=== PATIENT | female | born 1950 | race Caucasian/White ===

== ENCOUNTER → 2017-09-03 17:56 | Outpatient (CLI) | payer MEDICARE, SELFPAY ==
--- NOTE | 2017-09-03 18:05 | DI.MRI.S_ITS ---
PROCEDURE: MR SHOULDER LT WO CON INDICATIONS: BURSITIS OF LEFT SHOULDER TECHNIQUE: Noncontrast oblique coronal T2 fast spin echo with fat saturation, oblique sagittal T1 spin echo and T2 fast spin echo with fat saturation, axial T1 spin echo and T2 fast spin echo with fat saturation through the shoulder. COMPARISON: [facility] [place], CR, XR SHOULDER 2+ VIEWS LEFT, 08/26/2017, 13:24. FINDINGS: Image quality: Excellent. Rotator cuff: Full-thickness tearing at the entire supraspinatus, with medial retraction and atrophy of the supraspinatus. Full-thickness tearing of the anterior and mid infraspinatus tendon, with medial retraction and atrophy of the mid/anterior infraspinatus. Posterior paraspinous intact. Teres minor intact. Subscapularis intact. Bones and bursae: Humeral head is subluxed superiorly. No bone marrow contusions or fractures. Intraosseous ganglia within the inferior glenoid are present. Moderate diffuse articular cartilage loss overlies the glenoid. Moderate acromioclavicular joint degeneration. The acromion demonstrates conventional anatomy, without an os acromiale. No pathologic subacromial-subdeltoid or subcoracoid bursal fluid is present. Capsule and soft tissues: Diffuse degenerative fraying of the glenoid labrum is present. The long head of the biceps tendon demonstrates normal location and morphology. The rotator interval appears normal, without fibrosis. The coracohumeral ligament is normal in thickness. IMPRESSION: 1. Full-thickness tearing of the supraspinatus, as well as the anterior and mid infraspinatus, associated with supraspinatus and infraspinatus atrophy. 2. Acromioclavicular joint osteoarthritis. 3. Degenerative fraying of the glenoid labrum with associated articular cartilage loss. Dictated by: Nicho Kowalski M.D. on 09/04/2017 at 9:22 Approved by: Nicho Kowalski M.D. on 09/04/2017 at 9:31
== END ==
PROVIDERS: Family Provider Nurse Practitioner Gerontology; PCP Nurse Practitioner Gerontology; Visit Provider Orthopaedic Surgery
DX: M75.52 Bursitis of left shoulder (principal); S46.812A Strain of other muscles, fascia and tendons at shoulder and upper arm level, left arm, initial encounter; M19.012 Primary osteoarthritis, left shoulder
CPT/HCPCS: 73221

== ENCOUNTER → 2018-11-25 08:19 | Outpatient (CLI) | payer MEDICARE, SELFPAY ==
--- NOTE | 2018-11-25 | DI.RAD.S_ITS ---
PROCEDURE: XR CERVICAL SPINE 2V OR 3V INDICATIONS: HEADACHE/NECK PAIN TECHNIQUE: 3 view(s) of the cervical spine were acquired. COMPARISON: None. FINDINGS: Bones: No fractures or dislocations to the T1 level. The lateral masses of C1 appear intact on the odontoid view. No suspicious bony lesions. Note is made of moderately severe to severe degenerative disc disease and facet osteoarthritis from C3 to 4 inferiorly. Slight anterolisthesis of C3 on C4 is associated with the facet degenerative change and ligamentous laxity. Soft tissues: No prevertebral soft tissue swelling. IMPRESSION: No trauma found. Moderately severe to severe degenerative disc disease and facet osteoarthritis from the C3 to 4 disc space but only slight subluxation is associated at that level. Spinal and foraminal stenosis likely is present more inferiorly. Dictated by: Agustin Reynaga M.D. on 11/25/2018 at 8:52 Approved by: Agustin Reynaga M.D. on 11/25/2018 at 8:53
== END ==
PROVIDERS: PCP Internal Medicine; Visit Provider Internal Medicine
DX: R51 Headache (principal); M50.31 Other cervical disc degeneration, high cervical region; M47.812 Spondylosis without myelopathy or radiculopathy, cervical region
CPT/HCPCS: 72040

== ENCOUNTER → 2019-01-07 14:32 | Outpatient (CLI) | payer MEDICARE, SELFPAY | PROVIDERS: PCP Internal Medicine; Visit Provider Internal Medicine | DX: Z71.3 Dietary counseling and surveillance (principal) ==

== ENCOUNTER → 2019-08-30 15:18 | Outpatient (CLI) | payer MEDICARE, SELFPAY ==
--- NOTE | 2019-08-30 | DI.CT.S_ITS ---
PROCEDURE: CT HEAD/BRAIN WO CON INDICATIONS: Unspecified injury of head, initial encounter TECHNIQUE: Noncontrast 4.5 mm thick angled axial sections acquired from the foramen magnum to the vertex, with coronal and sagittal reformats. For radiation dose reduction, the following was used: automated exposure control, adjustment of mA and/or kV according to patient size. COMPARISON: None. FINDINGS: Image quality: Excellent. CSF spaces: Basal cisterns are patent. No extra-axial fluid collections. The ventricles are symmetric in size and shape. Brain: No intracranial bleeds or masses. There is cerebral volume loss for age, with resultant ventricular and sulcal prominence. There are periventricular and deep white matter chronic small vessel ischemic changes. There is intracranial internal carotid artery atherosclerosis. Skull and face: Calvarium and visualized facial bones appear intact, without suspicious lesions. Sinuses: Visualized sinuses and mastoids are clear. IMPRESSION: No acute intracranial process. Dictated by: Gus Mack M.D. on 08/30/2019 at 16:15 Approved by: Gus Mack M.D. on 08/30/2019 at 16:17
== END ==
PROVIDERS: PCP Internal Medicine; Referring Provider Internal Medicine; Visit Provider Internal Medicine
DX: S09.90XA Unspecified injury of head, initial encounter (principal); X58.XXXA Exposure to other specified factors, initial encounter
CPT/HCPCS: 70450

== ENCOUNTER → 2021-01-07 11:55 | Outpatient (CLI) | payer MEDICARE, SELFPAY ==
--- NOTE | 2021-01-07 | DI.CT.S_ITS ---
PROCEDURE: CT ABDOMEN PELVIS W CON INDICATIONS: LOWER ABD PAIN TECHNIQUE: After the administration of oral and intravenous contrast, axial sections were acquired from the lung bases to the pubic symphysis. Coronal and sagittal reformats were performed. For radiation dose reduction, the following was used: automated exposure control, adjustment of mA and/or kV according to patient size. COMPARISON:None. FINDINGS: ABDOMEN: Lung bases: No acute findings. Heart: No pericardial effusion. Normal in size. Liver: Hepatic steatosis. Subcentimeter hepatic foci are statistically cysts or hemangiomas, although technically too small to characterize accurately and therefore nonspecific. Gallbladder: Negative. Bile ducts: Normal. Pancreas: Normal. Spleen: Normal. Adrenals: Normal. Kidneys and Ureters: No hydronephrosis. Subcentimeter renal foci, statistically cysts, although technically too small to characterize accurately and therefore nonspecific. Stomach and duodenum: Small hiatal hernia. This could be confirmed with upper GI series. Bowel: Colonic diverticulosis incidentally noted. Appendix is not clearly identified however no suspicious pericecal inflammatory changes are seen. No evidence of bowel obstruction. Other: No free fluid or air. Abdominal nodes: Normal. Aorta and IVC: Normal in size. Ventral wall: Normal. PELVIS: Bladder: Normal. Inguinal region: No hernia. Pelvic nodes: Normal. Bones: No suspicious bony lesions. No vertebral body compression fractures. Diffuse spondylosis and facet arthropathy. Mild levocurvature. IMPRESSION: No acute abnormality identified. Colonic diverticulosis without definite focal diverticulitis. Small hiatal hernia as above Additional chronic and incidental findings as above. Dictated by: Gus Mack M.D. on 01/07/2021 at 14:46 Approved by: Gus Mack M.D. on 01/07/2021 at 14:51
[2021-01-07 12:30] LABS: BUN Creatinine Ratio 24.7 (6-22); Blood Urea Nitrogen 19 mg/dL (7-17); Estimated Glomerular Filt Rate > 60.0 mL/min (>60)
== END ==
PROVIDERS: PCP Internal Medicine; Referring Provider Student in an Organized Health Care Education/Training Program; Visit Provider Student in an Organized Health Care Education/Training Program
DX: R10.30 Lower abdominal pain, unspecified (principal); R19.4 Change in bowel habit; R14.0 Abdominal distension (gaseous); K44.9 Diaphragmatic hernia without obstruction or gangrene; K57.90 Diverticulosis of intestine, part unspecified, without perforation or abscess without bleeding
CPT/HCPCS: 36415; 74177; 82565; 84520

== ENCOUNTER → 2021-09-17 13:14 | Outpatient (CLI) | payer MEDICARE, SELFPAY ==
[2021-09-17 14:06] LABS: COVID19 -Nasal RAPID Negative (Negative)
== END ==
PROVIDERS: PCP Internal Medicine; Visit Provider Surgery
DX: Z20.822 Contact with and (suspected) exposure to COVID-19 (principal); Z01.812 Encounter for preprocedural laboratory examination
CPT/HCPCS: 87635; C9803

== ENCOUNTER 2021-09-18 09:17 | Day surgery (SDC) | payer MEDICARE, SELFPAY ==
--- NOTE | 2021-09-18 | PATH_ITS ---
[facility] Accession Number: [id number] . 01 Material submitted: . colon - RANDOM COLON . 01 Diagnosis: Random Colon, Biopsies: Colonic mucosa with no diagnostic abnormality. Negative for active, chronic, and microscopic colitis. Negative for dysplasia and malignancy. . JNL 09/20/2021 0820 Local . 01 Electronically signed: . Mary Benz MD, Pathologist NPI- [id number] . 01 Gross description: . RANDOM COLON: Received in formalin are 2 fragment(s) of pineda, soft tissue measuring 0.4 x 0.2 x 0.1 cm to 0.2 x 0.1 x 0.1 cm submitted entirely in 1 cassette(s) /CPE 09/19/2021 0510 Local . 01 Pathologist provided ICD-10: R14.0 . 01 CPT . 948547 Specimen Comment: A courtesy copy of this report has been sent to [phone] Performed at: 01 [facility] [address] [place] [address], [place], [place] [id number] MD Chao Whitfield MD Phone: [phone]
[2021-09-18 09:42] VITALS: BMI 33.7
[2021-09-18 09:54] VITALS: BP 121/76; PULSE 54; RESP 16; TEMP 36.6; O2SAT 96
[2021-09-18] MEDS: SODIUM CHLORIDE 0.9% 1,000 ML 84 ML IV (10:02)
--- NOTE | 2021-09-18 10:59 | PM.HP.1 ---
History of Present Illness History of Present Illness Date Patient Seen: 09/18/21 Chief complaint: Colonoscopy Narrative: Need for follow-up colonoscopy at a 10 year interval. Also some symptoms including altered bowel movements abdominal discomfort and history of diverticulitis Patient History Medical History Depression Sleep apnea Surgical History (Updated 07/07/17 @ 06:07 by Conversion Provider) History of repair of hiatal hernia Status post arthroscopy Status post partial mastectomy Family & Social History Social History: household members none Tobacco & Substance use: Smoking Status Former smoker alcohol intake current alcohol intake frequency holiday/special occasion Substance Use Type does not use Meds Home Medications and Allergies Home Medications Medication Instructions Recorded Confirmed Type desvenlafaxine succinate 50 mg 1 tab PO DAILY 09/18/21 09/18/21 History tablet,extended release 24 hr Allergies Allergy/AdvReac Type Severity Reaction Status Date / Time No Known Drug Allergies Allergy Verified 09/18/21 09:40 Exam Vital Signs (past 8 hours): - 09/18/21 09:54 Temperature 97.9 F Pulse Rate 54 L Respiratory Rate 16 Blood Pressure 121/76 Pulse Oximetry 96 Oxygen Delivery Method Room Air Oxygen Delivery Method Room Air Narrative Exam Narrative: Oropharynx free of lesions Chest clear to auscultation percussion Cardiac exam reveals no S3 or murmur Assessment & Plan Assessment & Plan narrative: Follow-up 10 year screening colonoscopy. Sees other symptoms present. Need to rule out underlying colitis. Risks, benefits, alternatives have been explained. Time Spent With Patient Critical Care time: I spent a total of [] minutes of critical care time on this patient's care today; this time is exclusive of procedural time.
--- NOTE | 2021-09-18 11:01 | PM.OP.COLON ---
Operative Date/Time/Diagnoses Date of procedure: 09/18/21 Pre-op diagnosis: See indication and findings Procedure & Clinicians Study performed: Colonoscopy Indications: 10 year screening colonoscopy and a lower GI symptoms. Rule out colitis. Surgeon: Jun Hammer Procedure Notes Procedure in detail: After informed consent was obtained patient was placed in left lateral decubitus position. The video colonoscope was introduced the rectum slowly advanced cecum. On slow withdrawal mucosa was carefully examined. Preparation was good. The scope was removed. The patient tolerated procedure well. Blood loss none Complications none Sedation mac Findings 1. Very tortuous colon in particular the transverse colon. No clinical significance 2. Otherwise normal colonoscopy with the exception of scattered lopez colonic diverticula. Mucosa appeared normal. Random biopsies were taken to rule out underlying microscopic colitis. Will be in touch by biopsy results. She should make a return visit to come see me next month so we can go over any residual symptoms and address that.
[2021-09-18 11:34] VITALS: BP 153/97; PULSE 83; RESP 18; TEMP 36.8; O2SAT 96
[2021-09-18 11:39] VITALS: BP 149/80; PULSE 60; RESP 19; O2SAT 95
[2021-09-18 11:44] VITALS: BP 154/97; PULSE 76; RESP 15; O2SAT 96
[2021-09-18 11:49] VITALS: BP 140/77; BP 150/83; PULSE 54; PULSE 68; RESP 14; O2SAT 97
[2021-09-18 12:20] VITALS: BP 133/75; PULSE 52; RESP 16; TEMP 35.7; O2SAT 97
--- NOTE | 2021-09-18 12:57 | SUR.PHASEII ---
1145 late entry Patient informed that anesthesia does not expect any complications from fluid in the sinuses, but to follow up with her primary care doctor if needed.
== END 2021-09-18 12:30 | disposition home or self-care (01) ==
PROVIDERS: PCP Internal Medicine; Referring Provider Internal Medicine Gastroenterology; Visit Provider Internal Medicine Gastroenterology
PROC: 0DJD8ZZ Inspection of Lower Intestinal Tract, Via Natural or Artificial Opening Endoscopic (ICD-10-PCS; CPT 45378; principal; 2021-09-18 11:00)
DX: K57.30 Diverticulosis of large intestine without perforation or abscess without bleeding (principal); R14.0 Abdominal distension (gaseous); G47.30 Sleep apnea, unspecified; F32.A Depression, unspecified; Z87.891 Personal history of nicotine dependence
CPT/HCPCS: 45380; J2405; J2704

== ENCOUNTER → 2022-04-22 11:49 | Outpatient (ROUT) | payer MEDICARE, SELFPAY ==
[2022-04-22 12:31] LABS: COVID-19 CEPHEID 4-PLEX PCR Negative (Negative); Influenza A - CEPHEID Flu A NEGATIVE (NEGATIVE); Influenza B - CEPHEID Flu B NEGATIVE (NEGATIVE); Respiratory Syncytial Virus Negative (Negative)
== END ==
PROVIDERS: PCP Internal Medicine; Visit Provider Internal Medicine
DX: Z20.822 Contact with and (suspected) exposure to COVID-19 (principal)
CPT/HCPCS: 0241U

== ENCOUNTER → 2022-07-21 12:37 | Outpatient (CLI) | payer MEDICARE, SELFPAY ==
--- NOTE | 2022-07-21 12:40 | DI.RAD.S_ITS ---
PROCEDURE: XR CHEST 2V INDICATIONS: Shortness of breath TECHNIQUE: 2 views of the chest were acquired. COMPARISON: None. FINDINGS: Surgical changes and devices: None. Lungs and pleura: Lungs are clear. No pleural effusions or pneumothorax. Mediastinum: Mediastinal contours are normal. Heart size is normal. Bones and chest wall: No suspicious bony abnormalities. Soft tissues appear unremarkable. IMPRESSION: No acute cardiopulmonary process. Dictated by: Jay Franco M.D. on 07/21/2022 at 13:14 Approved by: Jay Franco M.D. on 07/21/2022 at 13:14
== END ==
PROVIDERS: PCP Internal Medicine; Referring Provider Registered Nurse; Visit Provider Registered Nurse
DX: R06.02 Shortness of breath (principal)
CPT/HCPCS: 71046

== ENCOUNTER 2022-07-21 13:10 | Emergency (ER) | payer MEDICARE, SELFPAY ==
[2022-07-21] VITALS (8 sets, daily range): BP systolic 119–127; BP diastolic 66–77; PULSE 57–120; RESP 12–22; TEMP 36.6; O2SAT 93–95; BMI 34.7
[2022-07-21 13:49] LABS: Add Manual Diff / Slide Review NO; Basophils Absolute Auto 100 /uL (0-100); Basophils Percent Auto 1.2 % (0-2); Eosinophils Absolute Auto 100 /uL (0-450); Eosinophils Percent Auto 1.3 % (2-4); Hematocrit 41.9 % (36-46); Hemoglobin 14.6 g/dL (12.0-16.0); Lymphocytes Absolute Auto 2100 /uL (1100-4500); Lymphocytes Percent Auto 34.9 % (25-40); Mean Corpuscular HGB Conc 34.8 % (30-36); Mean Corpuscular Hemoglobin 32.6 PG (26-34); Mean Corpuscular Volume 93.5 fL (80-100); Monocytes Absolute Auto 300 /uL (0-900); Monocytes Percent Auto 5.7 % (3-14); Neutrophils Absolute Auto 3300 /uL (1500-7000); Neutrophils Percent Auto 56.9 % (50-75); Platelet Count 216 X10^3/uL (150-400); Red Blood Cell Count 4.47 X10^6/uL (4.0-5.2); Red Cell Distribution Width 13.4 % (11.6-14.8); White Blood Cell Count 5.9 X10^3/uL (4.5-11.0)
[2022-07-21 13:57] LABS: INR 1.1 (0.9-1.3); Prothrombin Time 12.7 SECONDS (10.1-12.7)
[2022-07-21 14:00] LABS: PTT Partial Thromboplastin Tim 34 SECONDS (26-36)
--- NOTE | 2022-07-21 14:04 | PC.NURSE ---
Pt presents with intermittent, sharp, stabbing back pain between her shoulder blades, SOB, cough and decreased energy for the past month. Pt recently changed medication with her statin. Pt has hx of breast cancer with left breast mastectomy and prediabetes. Pt is closely followed by Dianne Graham.
[2022-07-21 14:06] LABS: Alanine Aminotransferase 29 IU/L (<35); Albumin Globulin Ratio 1.3 (1.0-2.8); Alkaline Phosphatase 58 U/L (38-126); Aspartate Aminotransferase 32 IU/L (14-36); BUN Creatinine Ratio 24.7 (6-22); Bilirubin Total 0.5 mg/dL (0.2-1.3); Blood Urea Nitrogen 21 mg/dL (7-17); Calcium 9.1 mg/dL (8.4-10.2); Carbon Dioxide 24 mmol/L (22-32); Chloride 105 mmol/L (98-107); Creatine Kinase 107 U/L (30-135); Estimated Glomerular Filt Rate > 60 mL/min (>60); Glucose 172 mg/dL (80-110); HEMOLYSIS < 15 (0-50); Lipase 97 U/L (23-300); Potassium 3.7 mmol/L (3.4-5.1); Sodium 137 mmol/L (137-145)
--- NOTE | 2022-07-21 14:08 | ED_ITS ---
HPI - General Adult <Sussy Smith PA-C - Last Filed: 07/21/22 17:27> General Chief complaint: Shortness of Breath/Dyspnea Stated complaint: sent by [facility], pain in shoulder, tightness in chest Time Seen by Provider: 07/21/22 13:26 Source: patient Mode of arrival: Ambulatory History of Present Illness HPI narrative: 72-year-old female with past medical history hypercholesterolemia, depression presents to the ED with 1 month of worsening shortness of breath and chest pain. Patient states that she has been getting significantly dyspneic with very little exertion such as walking a few steps. Patient complains of chest pain which she describes as a sharp pain between her shoulder blades, more skew to the left side. Patient endorses a cough with some phlegm. Patient denies fever, chills, rhinorrhea, sore throat, abdominal pain, dysuria, nausea, vomiting, lightheadedness, dizziness, syncope. Patient states that she 1st attributed her symptoms to seasonal allergies or the statin medication that she is taking. Her PCP advised her to stop the statin medication for a couple of weeks, however patient states that her chest pain and shortness of breath has worsened since she stopped it for the last 2 weeks. Patient has a distant history of smoking for about 14 years, quit in 1978. Patient denies history of asthma, COPD, emphysema. No history of DVT or PE. Related Data Home Medications Medication Instructions Recorded Confirmed desvenlafaxine succinate 50 mg 1 tab PO DAILY 09/18/21 07/21/22 tablet,extended release 24 hr Allergies Allergy/AdvReac Type Severity Reaction Status Date / Time No Known Drug Allergies Allergy Verified 07/21/22 13:21 Review of Systems <Sussy Smith PA-C - Last Filed: 07/21/22 17:27> Review of Systems ROS Unobtainable: All systems reviewed & are unremarkable except as noted in HPI and below Constitutional Constitutional: Denies chills, Reports fatigue, Denies fever(s), Denies frequent falls, Denies lethargy and Denies weakness Eyes Eyes: Denies change in vision, Denies eye discharge, Denies irritation and Denies loss of vision ENT Ears, Nose, Mouth, and Throat: Denies change in voice, Denies dizziness, Denies neck pain, Denies sore throat and Denies throat swelling Cardiovascular Cardiovascular: Reports chest pain, Denies irregular heart rhythm, Denies lightheadedness, Denies palpitations, Reports dyspnea, Reports dyspnea on exertion and Denies orthopnea Respiratory Respiratory: Reports cough, Reports dyspnea, Reports dyspnea on exertion and Denies wheezing Gastrointestinal Gastrointestinal: Denies abdominal pain, Denies change in bowel habits, Denies diarrhea, Denies nausea and Denies vomiting Genitourinary Genitourinary: Denies hematuria, Denies flank pain, Denies urinary incontinence and Denies urinary urgency Musculoskeletal Musculoskeletal: Denies back pain, Denies muscle weakness, Denies neck pain, Denies numbness and Denies tingling Integumentary/Breasts Skin/Breast: Denies pruritus, Denies erythema, Denies rash and Denies wounds Neurologic Neurologic: Denies behavioral changes, Denies confusion, Denies dizziness, Denies frequent falls, Denies loss of vision, Denies numbness, Denies tingling and Denies weakness Psychiatric Psychiatric: Denies anxiety, Denies behavioral changes, Denies confusion, Denies depression, Denies homicidal ideation and Denies suicidal ideation Endocrine Endocrine: Reports fatigue, Denies flushing and Denies palpitations Hematologic/Lymphatic Hematologic/Lymphatic: Denies easy bruising Allergic/Immunologic Allergic/Immunologic: Denies urticaria, Denies throat swelling and Denies wheezing Patient History <Sussy Smith PA-C - Last Filed: 07/21/22 17:27> Medical History Depression Sleep apnea Surgical History History of repair of hiatal hernia Status post arthroscopy Status post partial mastectomy Social History household members: none Smoking Status: Former smoker alcohol intake: current Smoking Status: Former smoker alcohol intake frequency: holidays/special occasions only Substance Use Type: does not use Exam <Sussy Smith PA-C - Last Filed: 07/21/22 17:27> Narrative Exam Narrative: Const General:?cooperative, healthy appearing and comfortable [facility] Head:?normal to inspection Ears:?hearing grossly normal bilaterally Nose:?external nose normal Face and sinus:?normal facial exam and sinuses nontender Mouth:?oral mucosae normal Throat:?posterior oropharynx normal Eyes General:?appearance normal, both eyes and all related structures Neck Neck:?normal visual inspection and no lymphadenopathy noted Resp Effort & Inspection:?normal respiratory effort Auscultation:?clear to auscultation bilaterally Cardio Rate:?regular rate Rhythm:?regular rhythm Neuro General:?patient alert, patient awake and patient oriented x3 Initial Vital Signs Initial Vital Signs: Vital Signs Temperature 97.9 F 07/21/22 13:17 Pulse Rate 120 H 07/21/22 13:17 Respiratory Rate 22 07/21/22 13:17 Blood Pressure 120/76 07/21/22 13:17 Pulse Oximetry 95 07/21/22 13:17 Oxygen Delivery Method Room Air 07/21/22 13:17 <Kushal Ferris DO - Last Filed: 07/21/22 17:42> Initial Vital Signs Initial Vital Signs: Vital Signs Temperature 97.9 F 07/21/22 13:17 Pulse Rate 120 H 07/21/22 13:17 Respiratory Rate 07/21/22 13:17 Blood Pressure 120/76 07/21/22 13:17 Pulse Oximetry 95 07/21/22 13:17 Oxygen Delivery Method Room Air 07/21/22 13:17 Course <Sussy Smith PA-C - Last Filed: 07/21/22 17:27> Orders Ordered: ED Orders 07/21/22 13:21 EKG-12 Lead Stat 07/21/22 13:22 BNP [NT-proBNP (BNP-Adult 18+)] Stat D Dimer Stat 07/21/22 13:35 Complete Blood Count AUTO DIFF Stat Comprehensive Metabolic Panel Stat Lipase Stat Magnesium Stat PTT Partial Thromboplastin [place] Stat Prothrombin Time INR Stat Troponin & CK Cardiac Panel Stat 07/21/22 14:00 COVID19 -Nasal RAPID Stat 07/21/22 14:42 CT angio chest PE protocol Stat 07/21/22 16:08 EKG-12 Lead Stat 07/21/22 16:25 Troponin I Stat Discontinued Medications Aspirin (Aspirin 81 Mg Chew Tab) 324 mg PO NOW ONE Stop: 07/21/22 13:22 Last Admin: 07/21/22 13:54 Dose: Not Given Documented By: SB Vital Signs Vital signs: Vital Signs - 8 hr 07/21/22 13:17 07/21/22 14:00 07/21/22 14:00 Temperature 97.9 F Pulse Rate 120 H 95 H Respiratory Rate 22 Blood Pressure 120/76 119/77 Pulse Oximetry 95 94 Oxygen Delivery Method Room Air Room Air 07/21/22 14:30 07/21/22 14:30 07/21/22 15:00 Temperature Pulse Rate 78 81 Respiratory Rate 13 21 Blood Pressure 121/69 Pulse Oximetry 93 95 Oxygen Delivery Method 07/21/22 15:30 07/21/22 16:00 07/21/22 17:00 Temperature Pulse Rate 59 L 57 L 62 Respiratory Rate 15 14 12 Blood Pressure Pulse Oximetry 93 95 93 Oxygen Delivery Method Room Air 07/21/22 17:19 07/21/22 17:19 Temperature Pulse Rate 69 Respiratory Rate 16 Blood Pressure 127/66 Pulse Oximetry 95 Oxygen Delivery Method <Kushal Ferris DO - Last Filed: 07/21/22 17:42> Orders Ordered: ED Orders 07/21/22 13:21 EKG-12 Lead Stat 07/21/22 13:22 BNP [NT-proBNP (BNP-Adult 18+)] Stat D Dimer Stat 07/21/22 13:35 Complete Blood Count AUTO DIFF Stat Comprehensive Metabolic Panel Stat Lipase Stat Magnesium Stat PTT Partial Thromboplastin [place] Stat Prothrombin Time INR Stat Troponin & CK Cardiac Panel Stat 07/21/22 14:00 COVID19 -Nasal RAPID Stat 07/21/22 14:42 CT angio chest PE protocol Stat 07/21/22 16:08 EKG-12 Lead Stat 07/21/22 16:25 Troponin I Stat Discontinued Medications Aspirin (Aspirin 81 Mg Chew Tab) 324 mg PO NOW ONE Stop: 07/21/22 13:22 Last Admin: 07/21/22 13:54 Dose: Not Given Documented By: SB Vital Signs Vital signs: Vital Signs - 8 hr 07/21/22 13:17 07/21/22 14:00 07/21/22 14:00 Temperature 97.9 F Pulse Rate 120 H 95 H Respiratory Rate 22 Blood Pressure 120/76 119/77 Pulse Oximetry 95 94 Oxygen Delivery Method Room Air Room Air 07/21/22 14:30 07/21/22 14:30 07/21/22 15:00 Temperature Pulse Rate 78 81 Respiratory Rate 13 21 Blood Pressure 121/69 Pulse Oximetry 93 95 Oxygen Delivery Method 07/21/22 15:30 07/21/22 16:00 07/21/22 17:00 Temperature Pulse Rate 59 L 57 L 62 Respiratory Rate 15 14 12 Blood Pressure Pulse Oximetry 93 95 93 Oxygen Delivery Method Room Air 07/21/22 17:19 07/21/22 17:19 Temperature Pulse Rate 69 Respiratory Rate 16 Blood Pressure 127/66 Pulse Oximetry 95 Oxygen Delivery Method Medical Decision Making <Sussy Smith PA-C - Last Filed: 07/21/22 17:27> Lab Data 07/21/22 13:35 07/21/22 13:35 Labs: Lab Results 07/21/22 07/21/22 07/21/22 Range/Units 13:22 13:22 13:35 WBC 5.9 (4.5-11.0) X10^3/uL RBC 4.47 (4.0-5.2) X10^6/uL Hgb 14.6 (12.0-16.0) g/dL Hct 41.9 (36-46) % MCV 93.5 (80-100) fL MCH 32.6 (26-34) PG MCHC 34.8 (30-36) % RDW 13.4 (11.6-14.8) % Plt Count 216 (150-400) X10^3/uL Neut % (Auto) 56.9 (50-75) % Lymph % (Auto) 34.9 (25-40) % [place] % (Auto) 5.7 (3-14) % Eos % (Auto) 1.3 L (2-4) % Baso % (Auto) 1.2 (0-2) % Neut # (Auto) 3300 (7751-2368) /uL Lymph # (Auto) 2100 (4748-8139) /uL [place] # (Auto) 300 (0-900) /uL Eos # (Auto) 100 (0-450) /uL Baso # (Auto) 100 (0-100) /uL PT (10.1-12.7) SECONDS INR (0.9-1.3) APTT (26-36) SECONDS D-Dimer 627 H (<500) ng/ml Sodium (137-145) mmol/L Potassium (3.4-5.1) mmol/L Chloride (98-107) mmol/L Carbon Dioxide (22-32) mmol/L BUN (7-17) mg/dL Creatinine (0.52-1.04) mg/dL Estimated GFR (>60) mL/min BUN/Creatinine Ratio (6-22) Glucose (80-110) mg/dL Calcium (8.4-10.2) mg/dL Magnesium (1.6-2.3) mg/dL Total Bilirubin (0.2-1.3) mg/dL AST (14-36) IU/L ALT (<35) IU/L Alkaline Phosphatase (38-126) U/L Total Creatine Kinase (30-135) U/L CK-MB (CK-2) (<2.37) ng/mL CK-MB (CK-2) Rel Index (1.5-5.0) % Troponin I (0.01-0.034) ng/mL NT-Pro-B Natriuret Pep 37 (<125) pg/mL Total Protein (6.3-8.2) g/dL Albumin (3.5-5.0) g/dL Globulin (1.7-4.1) g/dL Albumin/Globulin Ratio (1.0-2.8) Lipase (23-300) U/L SARS-CoV-2 (PCR) (Negative) 07/21/22 07/21/22 07/21/22 Range/Units 13:35 13:35 14:00 WBC (4.5-11.0) X10^3/uL RBC (4.0-5.2) X10^6/uL Hgb (12.0-16.0) g/dL Hct (36-46) % MCV (80-100) fL MCH (26-34) PG MCHC (30-36) % RDW (11.6-14.8) % Plt Count (150-400) X10^3/uL Neut % (Auto) (50-75) % Lymph % (Auto) (25-40) % [place] % (Auto) (3-14) % Eos % (Auto) (2-4) % Baso % (Auto) (0-2) % Neut # (Auto) (2480-3182) /uL Lymph # (Auto) (6854-4813) /uL [place] # (Auto) (0-900) /uL Eos # (Auto) (0-450) /uL Baso # (Auto) (0-100) /uL PT 12.7 (10.1-12.7) SECONDS INR 1.1 (0.9-1.3) APTT 34 (26-36) SECONDS D-Dimer (<500) ng/ml Sodium 137 (137-145) mmol/L Potassium 3.7 (3.4-5.1) mmol/L Chloride 105 (98-107) mmol/L Carbon Dioxide 24 (22-32) mmol/L BUN 21 H (7-17) mg/dL Creatinine 0.85 (0.52-1.04) mg/dL Estimated GFR > 60 (>60) mL/min BUN/Creatinine Ratio 24.7 H (6-22) Glucose 172 H (80-110) mg/dL Calcium 9.1 (8.4-10.2) mg/dL Magnesium 2.0 (1.6-2.3) mg/dL Total Bilirubin 0.5 (0.2-1.3) mg/dL AST 32 (14-36) IU/L ALT 29 (<35) IU/L Alkaline Phosphatase 58 (38-126) U/L Total Creatine Kinase 107 (30-135) U/L CK-MB (CK-2) 1.08 (<2.37) ng/mL CK-MB (CK-2) Rel Index 1.0 L (1.5-5.0) % Troponin I < 0.012 (0.01-0.034) ng/mL NT-Pro-B Natriuret Pep (<125) pg/mL Total Protein 7.0 (6.3-8.2) g/dL Albumin 4.0 (3.5-5.0) g/dL Globulin 3.0 (1.7-4.1) g/dL Albumin/Globulin Ratio 1.3 (1.0-2.8) Lipase 97 (23-300) U/L SARS-CoV-2 (PCR) Negative (Negative) 07/21/22 Range/Units 16:25 WBC (4.5-11.0) X10^3/uL RBC (4.0-5.2) X10^6/uL Hgb (12.0-16.0) g/dL Hct (36-46) % MCV (80-100) fL MCH (26-34) PG MCHC (30-36) % RDW (11.6-14.8) % Plt Count (150-400) X10^3/uL Neut % (Auto) (50-75) % Lymph % (Auto) (25-40) % [place] % (Auto) (3-14) % Eos % (Auto) (2-4) % Baso % (Auto) (0-2) % Neut # (Auto) (6227-4043) /uL Lymph # (Auto) (8679-4971) /uL [place] # (Auto) (0-900) /uL Eos # (Auto) (0-450) /uL Baso # (Auto) (0-100) /uL PT (10.1-12.7) SECONDS INR (0.9-1.3) APTT (26-36) SECONDS D-Dimer (<500) ng/ml Sodium (137-145) mmol/L Potassium (3.4-5.1) mmol/L Chloride (98-107) mmol/L Carbon Dioxide (22-32) mmol/L BUN (7-17) mg/dL Creatinine (0.52-1.04) mg/dL Estimated GFR (>60) mL/min BUN/Creatinine Ratio (6-22) Glucose (80-110) mg/dL Calcium (8.4-10.2) mg/dL Magnesium (1.6-2.3) mg/dL Total Bilirubin (0.2-1.3) mg/dL AST (14-36) IU/L ALT (<35) IU/L Alkaline Phosphatase (38-126) U/L Total Creatine Kinase (30-135) U/L CK-MB (CK-2) (<2.37) ng/mL CK-MB (CK-2) Rel Index (1.5-5.0) % Troponin I < 0.012 (0.01-0.034) ng/mL NT-Pro-B Natriuret Pep (<125) pg/mL Total Protein (6.3-8.2) g/dL Albumin (3.5-5.0) g/dL Globulin (1.7-4.1) g/dL Albumin/Globulin Ratio (1.0-2.8) Lipase (23-300) U/L SARS-CoV-2 (PCR) (Negative) MDM Narrative Medical decision making narrative: 72-year-old female with past medical history hypercholesterolemia, depression presents to the ED with 1 month of worsening shortness of breath and chest pain. Concern for ACS versus PE versus pneumonia versus CHF versus musculoskeletal sprain/strain versus other. Will obtain chest x-ray, EKG, labs, troponin, BNP, D-dimer, COVID test. Will reassess. Chest x-ray, EKGx2 , labs, troponinx2, BNP within normal limits. D-dimer was also below the cutoff for age adjusted D-dimer, however did a CT scan to rule out a PE, given patient's symptoms. CT chest without acute findings, there were some small pulmonary nodules as an incidental finding. Discussed findings with patient. Patient agrees to follow-up with her PCP in a week. She already has a appointment for this. ED return precautions were discussed with patient. Patient verbalized understanding. Medical records reviewed: Yes <Kushal Ferris DO - Last Filed: 07/21/22 17:42> Lab Data Labs: Lab Results 07/21/22 07/21/22 07/21/22 Range/Units 13:22 13:22 13:35 WBC 5.9 (4.5-11.0) X10^3/uL RBC 4.47 (4.0-5.2) X10^6/uL Hgb 14.6 (12.0-16.0) g/dL Hct 41.9 (36-46) % MCV 93.5 (80-100) fL MCH 32.6 (26-34) PG MCHC 34.8 (30-36) % RDW 13.4 (11.6-14.8) % Plt Count 216 (150-400) X10^3/uL Neut % (Auto) 56.9 (50-75) % Lymph % (Auto) 34.9 (25-40) % [place] % (Auto) 5.7 (3-14) % Eos % (Auto) 1.3 L (2-4) % Baso % (Auto) 1.2 (0-2) % Neut # (Auto) 3300 (4442-3532) /uL Lymph # (Auto) 2100 (4770-3804) /uL [place] # (Auto) 300 (0-900) /uL Eos # (Auto) 100 (0-450) /uL Baso # (Auto) 100 (0-100) /uL PT (10.1-12.7) SECONDS INR (0.9-1.3) APTT (26-36) SECONDS D-Dimer 627 H (<500) ng/ml Sodium (137-145) mmol/L Potassium (3.4-5.1) mmol/L Chloride (98-107) mmol/L Carbon Dioxide (22-32) mmol/L BUN (7-17) mg/dL Creatinine (0.52-1.04) mg/dL Estimated GFR (>60) mL/min BUN/Creatinine Ratio (6-22) Glucose (80-110) mg/dL Calcium (8.4-10.2) mg/dL Magnesium (1.6-2.3) mg/dL Total Bilirubin (0.2-1.3) mg/dL AST (14-36) IU/L ALT (<35) IU/L Alkaline Phosphatase (38-126) U/L Total Creatine Kinase (30-135) U/L CK-MB (CK-2) (<2.37) ng/mL CK-MB (CK-2) Rel Index (1.5-5.0) % Troponin I (0.01-0.034) ng/mL NT-Pro-B Natriuret Pep 37 (<125) pg/mL Total Protein (6.3-8.2) g/dL Albumin (3.5-5.0) g/dL Globulin (1.7-4.1) g/dL Albumin/Globulin Ratio (1.0-2.8) Lipase (23-300) U/L SARS-CoV-2 (PCR) (Negative) 07/21/22 07/21/22 07/21/22 Range/Units 13:35 13:35 14:00 WBC (4.5-11.0) X10^3/uL RBC (4.0-5.2) X10^6/uL Hgb (12.0-16.0) g/dL Hct (36-46) % MCV (80-100) fL MCH (26-34) PG MCHC (30-36) % RDW (11.6-14.8) % Plt Count (150-400) X10^3/uL Neut % (Auto) (50-75) % Lymph % (Auto) (25-40) % [place] % (Auto) (3-14) % Eos % (Auto) (2-4) % Baso % (Auto) (0-2) % Neut # (Auto) (0974-6512) /uL Lymph # (Auto) (2080-3251) /uL [place] # (Auto) (0-900) /uL Eos # (Auto) (0-450) /uL Baso # (Auto) (0-100) /uL PT 12.7 (10.1-12.7) SECONDS INR 1.1 (0.9-1.3) APTT 34 (26-36) SECONDS D-Dimer (<500) ng/ml Sodium 137 (137-145) mmol/L Potassium 3.7 (3.4-5.1) mmol/L Chloride 105 (98-107) mmol/L Carbon Dioxide 24 (22-32) mmol/L BUN 21 H (7-17) mg/dL Creatinine 0.85 (0.52-1.04) mg/dL Estimated GFR > 60 (>60) mL/min BUN/Creatinine Ratio 24.7 H (6-22) Glucose 172 H (80-110) mg/dL Calcium 9.1 (8.4-10.2) mg/dL Magnesium 2.0 (1.6-2.3) mg/dL Total Bilirubin 0.5 (0.2-1.3) mg/dL AST 32 (14-36) IU/L ALT 29 (<35) IU/L Alkaline Phosphatase 58 (38-126) U/L Total Creatine Kinase 107 (30-135) U/L CK-MB (CK-2) 1.08 (<2.37) ng/mL CK-MB (CK-2) Rel Index 1.0 L (1.5-5.0) % Troponin I < 0.012 (0.01-0.034) ng/mL NT-Pro-B Natriuret Pep (<125) pg/mL Total Protein 7.0 (6.3-8.2) g/dL Albumin 4.0 (3.5-5.0) g/dL Globulin 3.0 (1.7-4.1) g/dL Albumin/Globulin Ratio 1.3 (1.0-2.8) Lipase 97 (23-300) U/L SARS-CoV-2 (PCR) Negative (Negative) 07/21/22 Range/Units 16:25 WBC (4.5-11.0) X10^3/uL RBC (4.0-5.2) X10^6/uL Hgb (12.0-16.0) g/dL Hct (36-46) % MCV (80-100) fL MCH (26-34) PG MCHC (30-36) % RDW (11.6-14.8) % Plt Count (150-400) X10^3/uL Neut % (Auto) (50-75) % Lymph % (Auto) (25-40) % [place] % (Auto) (3-14) % Eos % (Auto) (2-4) % Baso % (Auto) (0-2) % Neut # (Auto) (4862-8787) /uL Lymph # (Auto) (9138-5607) /uL [place] # (Auto) (0-900) /uL Eos # (Auto) (0-450) /uL Baso # (Auto) (0-100) /uL PT (10.1-12.7) SECONDS INR (0.9-1.3) APTT (26-36) SECONDS D-Dimer (<500) ng/ml Sodium (137-145) mmol/L Potassium (3.4-5.1) mmol/L Chloride (98-107) mmol/L Carbon Dioxide (22-32) mmol/L BUN (7-17) mg/dL Creatinine (0.52-1.04) mg/dL Estimated GFR (>60) mL/min BUN/Creatinine Ratio (6-22) Glucose (80-110) mg/dL Calcium (8.4-10.2) mg/dL Magnesium (1.6-2.3) mg/dL Total Bilirubin (0.2-1.3) mg/dL AST (14-36) IU/L ALT (<35) IU/L Alkaline Phosphatase (38-126) U/L Total Creatine Kinase (30-135) U/L CK-MB (CK-2) (<2.37) ng/mL CK-MB (CK-2) Rel Index (1.5-5.0) % Troponin I < 0.012 (0.01-0.034) ng/mL NT-Pro-B Natriuret Pep (<125) pg/mL Total Protein (6.3-8.2) g/dL Albumin (3.5-5.0) g/dL Globulin (1.7-4.1) g/dL Albumin/Globulin Ratio (1.0-2.8) Lipase (23-300) U/L SARS-CoV-2 (PCR) (Negative) Discharge Plan Departure Patient Disposition: Home Clinical Impression: Shortness of breath, Chest pain Activity Restrictions/Additional Instructions: You were evaluated in the ED today for shortness of breath, fatigue, chest pain. Your EKG, labs, chest x-ray, CT scan of the chest did not show any acute findings to explain your symptoms. The CT scan of the chest did show some nodules, it is recommended that you follow-up with your primary care doctor Dr. Graham as soon as possible for it. It seems that you have an appointment with your PCP for next week. Return to the ED if your symptoms worsen. Prescriptions: No Action desvenlafaxine succinate 50 mg tablet extended release 24 hr 1 tab PO DAILY Patient Comments: TAKE 1 TABLET BY MOUTH EVERY DAY FOR DEPRESSION OR ANXIETY Referrals: Dianne Graham ARNP [Primary Care Provider] - Stand Alone Forms: Patient Portal/API <Kushal Ferris DO - Last Filed: 07/21/22 17:42> [facility] Dr Ferris Co-Sign Statement: I was available for consultation during this patient's emergency department visit. This chart is signed by myself for administrative purposes only. I did not have direct contact with this patient during this visit. They were seen independently by the APC.
[2022-07-21 14:15] LABS: D Dimer 627 ng/ml (<500)
[2022-07-21 14:16] LABS: Troponin I < 0.012 ng/mL (0.01-0.034)
[2022-07-21 14:20] LABS: COVID19 -Nasal RAPID Negative (Negative)
[2022-07-21 14:21] LABS: Creatine Kinase MB 1.08 ng/mL (<2.37)
[2022-07-21 14:31] LABS: NT-proBNP (BNP-Adult 18+) 37 pg/mL (<125)
--- NOTE | 2022-07-21 14:42 | DI.CT.S_ITS ---
PROCEDURE: CT ANGIO CHEST PE PROTOCOL INDICATIONS: SOB, right sharp shoulder blade pain TECHNIQUE: After the administration of intravenous contrast, 2 mm thick sections acquired from the pulmonary apices to the posterior costophrenic angles. 3-dimensional maximum intensity projection (MIP) coronal and sagittal reformats were then acquired through the thorax. For radiation dose reduction, the following was used: automated exposure control, adjustment of mA and/or kV according to patient size. COMPARISON: None. FINDINGS: Image quality: Excellent. Pulmonary arteries: Pulmonary arteries are normal in size, and demonstrate no intraluminal filling defects to suggest central pulmonary embolism. Lungs and pleura: Lungs are clear. No pleural effusions or pneumothorax. Central and peripheral airways are patent. A few small pulmonary nodules measuring 0.4 cm or less. For example left lower lobe 0.4 cm, (5/163); right middle lobe 0.4 cm, (5/160). Mediastinum: Heart size is normal, without pericardial effusion. No mediastinal or hilar adenopathy. Thoracic aorta is normal in caliber and enhancement. Esophagus is normal in caliber, small hiatal hernia. Bones and chest wall: No suspicious bony lesions. Ribs and thoracic spine appear intact throughout. Thyroid gland is unremarkable. No axillary or supraclavicular adenopathy. Abdomen: Visualized upper abdominal solid organs appear normal in the early arterial phase of enhancement. IMPRESSION: 1. No pulmonary embolism. 2. No acute airspace opacity. Dictated by: Real Cheney M.D. on 07/21/2022 at 15:57 Approved by: Real Cheney M.D. on 07/21/2022 at 16:02
[2022-07-21 17:01] LABS: Troponin I < 0.012 ng/mL (0.01-0.034)
== END 2022-07-21 17:29 | disposition home or self-care (01) ==
PROVIDERS: Emergency Medicine; Emergency Provider Student in an Organized Health Care Education/Training Program; PCP Internal Medicine
DX: R07.9 Chest pain, unspecified (principal); R06.02 Shortness of breath; R53.83 Other fatigue; Z20.822 Contact with and (suspected) exposure to COVID-19
CPT/HCPCS: 36415; 71046; 71275; 80053; 82550; 82553; 83690; 83735; 83880; 84484; 85025; 85379; 85610; 85730; 87635; 93005; 99283; C9803; Q9967

== ENCOUNTER → 2022-08-08 09:48 | Outpatient (CLI) | payer MEDICARE, SELFPAY ==
--- NOTE | 2022-08-13 11:30 | P.PFT.S_ITS ---
Pulmonary Function Test Referral & Results Date Patient Seen: 08/08/22 Results: The spirometry demonstrates an FVC of 2.28 L which is 72% of predicted. The FEV1 was measured at 1.87 L which is 79% of predicted. The FEV1/FVC ratio was 82 which is 109% of predicted. Following the administration of bronchodilator there was a 31% improvement in FEF 25-75%. Lung volumes show an SVC of 2.81 L which is 93% of predicted. The diffusing capacity was measured at 20.92 which is 77% of predicted. No hemoglobin value was provided, so no correction for potential anemia could be made, if appropriate. The maximum voluntary ventilation was severely reduced Interpretation: This study demonstrates perhaps mild obstructive lung disease based on minimal reduction FEV1. There is also evidence of benefit following bronchodilator administration particularly in small airway flow based on improvement in FEF 25- 75% Lung volumes are normal There is a minimal reduction diffusing capacity suggesting the possibility of minimal disease at the capillary alveolar level Maximum voluntary ventilation is much more severely reduced than would be expected based on the abnormalities of spirometry as above, suggesting the presence at least possible presence of neuromuscular disease Clinical correlation suggested
== END ==
PROVIDERS: PCP Internal Medicine; Referring Provider Internal Medicine; Visit Provider Internal Medicine
DX: R06.02 Shortness of breath (principal); Z87.891 Personal history of nicotine dependence; J98.8 Other specified respiratory disorders; M89.8X1 Other specified disorders of bone, shoulder
CPT/HCPCS: 94060; 94726; 94729

== ENCOUNTER → 2022-08-11 12:30 | Outpatient (CLI) | payer MEDICARE, SELFPAY ==
--- NOTE | 2022-08-11 | DI.CT.S_ITS ---
PROCEDURE: CT CHEST ABD PEL W CON INDICATIONS: Shortness of breath TECHNIQUE: After the administration of oral and intravenous contrast, axial sections acquired from the supraclavicular neck to the pubic symphysis. Coronal and sagittal reformats were performed. For radiation dose reduction, the following was used: automated exposure control, adjustment of mA and/or kV according to patient size. COMPARISON: [facility], CT, CT ANGIO CHEST PE PROTOCOL, 07/21/2022, 14:54. FINDINGS: Image quality: Excellent. CHEST: Lower Neck: No enlarged lymph nodes. Thyroid: Normal CT appearance. Axillae: No enlarged lymph nodes. Chest Wall: Left mastectomy change. Lungs and Airways: There are several scattered solid, subpleural lung nodules bilaterally, mainly in the right lung, generally measuring 5 mm and less (left lower lobe 5/200, and right middle lobe 5/188). No new nodules, ground-glass opacities, or consolidations. Central and peripheral airways are normal without bronchial wall thickening or bronchiectasis. Pleura: No pneumothorax or pleural effusions. Heart: Heart size is normal. No pericardial effusion. Thoracic Vessels: The aorta and pulmonary arteries demonstrate normal size. Mediastinum and Nelly: No enlarged lymph nodes. Esophagus: No wall thickening. Tiny hiatal hernia. ABDOMEN: Liver: Subcentimeter hepatic hypodensity too small to characterize in segment six. Gallbladder: Normal. Biliary ducts: Nondilated. Pancreas: Normal. Spleen: Normal. Adrenal Glands: No nodules. Kidneys and Ureters: Symmetric enhancement. No nephrolithiasis or hydronephrosis. No hydroureter. Cyst arising from the left lateral midpole. Stomach and Bowel: Stomach and small bowel loops appear normal. There is lopez colonic diverticulosis, particularly extensive in the sigmoid colon. Peritoneum: No abnormal intraperitoneal fluid. No free air. Ventral Wall: No hernia. Abdominal Nodes: No retroperitoneal or mesenteric adenopathy by size criteria. Vessels: Aorta and inferior vena cava are normal in size. PELVIS: Pelvic Organs: Uterus and ovaries have a normal CT appearance. Bladder: Decompressed. Pelvic Nodes: No enlarged lymph nodes. Miscellaneous: No inguinal hernias are seen. Bones: No suspicious bone lesions. Grade 1 anterolisthesis L4 on five. Severe disc height loss L3-4. Diffuse disc and endplate degeneration throughout the thoracic and lumbar spine. IMPRESSION: 1. Scattered bilateral pulmonary nodules, otherwise normal CT of the chest. 2. Colonic diverticulosis without acute diverticulitis. 3. No explanation for shortness of breath. Dictated by: Iva Barahona M.D. on 08/11/2022 at 16:36 Approved by: Iva Barahona M.D. on 08/11/2022 at 16:49
== END ==
PROVIDERS: PCP Internal Medicine; Referring Provider Internal Medicine; Visit Provider Internal Medicine
DX: R07.89 Other chest pain (principal); R06.02 Shortness of breath; R94.31 Abnormal electrocardiogram [ECG] [EKG]; R91.8 Other nonspecific abnormal finding of lung field; N28.1 Cyst of kidney, acquired; M51.34 Other intervertebral disc degeneration, thoracic region; M51.36 Other intervertebral disc degeneration, lumbar region; M43.16 Spondylolisthesis, lumbar region; K57.30 Diverticulosis of large intestine without perforation or abscess without bleeding; Z90.12 Acquired absence of left breast and nipple
CPT/HCPCS: 71260; 74177; Q9967

== ENCOUNTER → 2022-08-26 13:41 | Outpatient (CLI) | payer MEDICARE, SELFPAY ==
--- NOTE | 2022-08-26 | DI.ECHO.S_ITS ---
[place] [facility]---------+ [facility] +---------+ : : [address] : : : : [id number] : : : : Phone: [phone]---------+ Echocardiogram Report + + :Name: MIRLANDE MONGE Study Date: 08/26/2022 Height: 66 in : :[facility] ReadingLocation: Weight: 210 lb : : Gender: Female BSA: 2.0 m2 : :: 1950 Age: 72 yrs BP: 108/68 mmHg: :Reason For Study: SHORTNESS OF BREATH : :Ordering Physician: TYLER, : :SAMUEL Performed By: Vandana Li : :Referring: SAMUEL SCOTT : + + Interpretation Summary 1) Normal left ventricular size with normal systolic functoin E(F 55-60%). 2) The anterolateral wall, inferolateral wall, and anterior wall appear to be have subtle hypokinesis (or it could poor endothelial visualization). 3) The right ventricle is normal in size and function. 4) No significant valvular abnormalities. 5) The right ventricular systolic pressure is estimated to be at least 28 mmHg based on an estimated right atrial pressure of 3 mm Hg. 6) No prior Echo available for comparison. Procedure: A two-dimensional transthoracic echocardiogram with color flow and Doppler was performed. The study quality was technically adequate. There is no prior echocardiogram noted for this patient. The patient was in sinus rhythm with heart rates between 68-95 bpm during the exam. Left Ventricle: The left ventricle is normal in size. Left ventricular wall thickness is at the upper limits of normal. The ejection fraction is estimated to be 55-60%. The anterolateral wall, inferolateral wall, and anterior wall appear to be have subtle hypokinesis. Diastolic parameters suggest a relaxation abnormality of the left ventricle, consistent with probable normal filling pressures. Right Ventricle: The right ventricle is normal in size and function. Atria: The left atrial size is normal. Right atrium not well visualized. The interatiral septum is hypermobile. There is no Doppler evidence for an interatrial shunt. Mitral Valve: The mitral valve is normal in structure and function. There is trace mitral regurgitation. Aortic Valve: The aortic valve is trileaflet. The aortic valve opens well. There is no aortic valve stenosis. No aortic regurgitation is present. Tricuspid Valve: The tricuspid valve is normal in structure and function. There is mild tricuspid regurgitation. The right ventricular systolic pressure is estimated to be at least 28 mmHg based on an estimated right atrial pressure of 3 mm Hg. Pulmonic Valve: The pulmonic valve leaflets are thin and pliable; valve motion is normal. There is no pulmonic valvular regurgitation. Great Vessels: The aortic root is normal size. The ascending aorta is normal in size. The IVC is of normal diameter and collapses greater than 50% with a sniff. This suggests a low right atrial pressure of 3 mm Hg. Pericardium/ Pleura There is no pericardial effusion. There is no pleural effusion. MMode/2D Measurements & Calculations LVIDd: 4.6 cm LVOT diam: 2.2 cm LVIDs: 3.1 cm Ao root diam: 3.0 cm FS: 33.0 % asc Aorta Diam: 3.4 cm IVSd: 0.89 cm Ao Arch Diam (Prox Trans): 2.5 cm LVPWd: 1.1 cm LV pinto. diameter/BSA (cm/m^2): 2.3 LV sys. diameter/BSA (cm/m^2): 1.5 LA A2 area: 15.6 cm2 IVC diam: 1.0 cm LA A4 area: 16.3 cm2 LA length (vol): 5.2 cm LA vol: 41.9 ml LA vol index: 20.5 ml/m2 RVD1 (basal): 3.1 cm RVD2 (mid): 2.5 cm TAPSE: 2.8 cm Doppler Measurements & Calculations Ao V2 max: 118.6 cm/sec LVOT Max Navdeep: 99.5 cm/sec Ao V2 mean: 92.3 cm/sec LV V1 max P.0 mmHg Ao max P.6 mmHg LV V1 VTI: 21.5 cm Ao mean P.6 mmHg MICHEL(I,D): 3.3 cm2 Ao V2 VTI: 23.9 cm MICHEL(V,D): 3.1 cm2 sev ratio: 0.90 MICHEL indexed to BSA (cm^2/m^2): 1.6 MV E max navdeep: 49.3 cm/sec TR max navdeep: 249.0 cm/sec MV A max navdeep: 85.2 cm/sec TR max P.8 mmHg MV E/A: 0.58 PA V2 max: 93.6 cm/sec Med Peak E' Navdeep: 6.6 cm/sec PA V2 mean: 65.8 cm/sec E/E' med: 7.5 PA mean P.9 mmHg Lat Peak E' Navdeep: 6.8 cm/sec PA pr(Accel): 36.2 mmHg E/E' lat: 7.2 E/e' average: 7.4 MV dec time: 0.24 sec SV(LVOT): 79.5 ml Reading Physician:03:33 PM
--- NOTE | 2022-08-26 | DI.NM.S_ITS ---
PROCEDURE: NM EXERCISE TREADMILL NON NUC COMPARISON: None. INDICATIONS: SHORTNESS OF BREATH FINDINGS: The patient exercised for 2 minutes and 1 seconds reaching 95% of maximum predicted heart rate. 4.6METS, LARY +60%. No angina, no ST changes, and no ectopy during exercise or recovery. IMPRESSION: Low risk, normal treadmill ECG only stress test with severely reduced exercise capacity (LARY +60%). Dictated by: Angel Vaz MD on 08/27/2022 at 13:34 Approved by: Angel Vaz MD on 08/27/2022 at 13:35
== END ==
PROVIDERS: PCP Internal Medicine; Referring Provider Internal Medicine; Visit Provider Internal Medicine
DX: R07.89 Other chest pain (principal); R94.31 Abnormal electrocardiogram [ECG] [EKG]; R06.02 Shortness of breath; I07.1 Rheumatic tricuspid insufficiency
CPT/HCPCS: 93017; 93306

== ENCOUNTER → 2023-05-18 11:01 | Outpatient (CLI) | payer MEDICARE, SELFPAY ==
--- NOTE | 2023-05-18 11:02 | DI.RAD.S_ITS ---
Bone Density Report Name: MIRLANDE MONGE Age: 72 Sex: Female Ethnicity: White Date of : 1950 Indication: postmenopausal; screening for osteoporosis; Referring Provider: SAMUEL SCOTT Study: Bone densitometry was performed. Exam Date: May 18, 2023 Accession number: [id number] Bone Density: Region BMD T-score Z-score Classification AP Spine(L1-L4) 1.406 3.3 5.6 Normal Femoral Neck (Left) 0.831 -0.2 1.8 Normal Total Hip (Left) 0.986 0.4 2.1 Normal Femoral Neck (Right) 0.810 -0.3 1.7 Normal Total Hip (Right) 0.935 -0.1 1.7 Normal Total Hip Mean 0.961 0.2 1.9 Normal World Health Organization criteria for BMD impression classify patients as: Normal (T-score at or above -1.0), Osteopenia (T-score between -1.0 and -2.5), or Osteoporosis (T-score at or below -2.5). 10-year Fracture Risk: FRAX not reported because: All T-scores for Spine Total, Hip Total, Femoral Neck at or above -1.0 Impression: The patient has normal bone mass. Discussion: BONE DENSITY IS ABOVE THE MINIMUM DESIRABLE LEVEL AT ALL SKELETAL SITES TESTED. This patient's bone mineral density is above the minimum desirable level (T-score -1.0 or better) at all sites measured. The patient should follow a healthful lifestyle (good nutrition with adequate calcium and vitamin D, and appropriate weight-bearing exercise). Follow-Up: Consider repeating this study in 5 years or sooner if there is some new clinical indication. Reported by: TUCKER STEPHENS MD on 05/18/2023 11:39:00 AM.
== END ==
PROVIDERS: PCP Internal Medicine; Referring Provider Internal Medicine; Visit Provider Internal Medicine
DX: Z78.0 Asymptomatic menopausal state (principal); Z13.820 Encounter for screening for osteoporosis
CPT/HCPCS: 77080

== ENCOUNTER → 2024-05-17 12:46 | Outpatient (CLI) | payer MEDICARE, SELFPAY ==
--- NOTE | 2024-05-17 12:47 | DI.CT.S_ITS ---
PROCEDURE: CT CHEST WO CON INDICATIONS: h/o multiple pulmonary nodules, eval for change TECHNIQUE: Noncontrast 5 mm thick sections acquired from the pulmonary apices to the posterior costophrenic angles. 1 mm lung window, 5 mm thick coronal and sagittal and 7 mm axial MIP reformats were then acquired. For radiation dose reduction, the following was used: automated exposure control, adjustment of mA and/or kV according to patient size. COMPARISON: [facility], CT, CT CHEST ABD PEL W CON, 08/11/2022, 14:12. FINDINGS: Image quality: Diagnostic. Lower Neck: No enlarged lymph nodes. Thyroid: No thyroid nodules which require sonographic follow up, per consensus guidelines. Axillae: No enlarged lymph nodes. Chest Wall: Status post left mastectomy. Bones: Degenerative changes are seen in the included spine. No aggressive osseous lesion.. Lungs and Pleura: No pneumothorax or pleural effusions. No acute consolidation. Scattered bilateral pulmonary nodules again seen and do not appear significantly changed when compared to the CT from 08/11/2022. Reference 5 mm nodule at the left lower lobe (3/192) appears unchanged. Right middle lobe 4 mm nodule (3/187) has slightly decreased in size. Heart: Heart size is normal. No pericardial effusion. Thoracic Vessels: The aorta and pulmonary arteries demonstrate normal size. Tortuous aorta. Mediastinum and Nelly: No enlarged lymph nodes. Esophagus: No wall thickening. Small hiatal hernia. Upper Abdomen: Exophytic left renal cyst is partially imaged. Visualized upper abdomen solid organs and bowel loops appear normal. IMPRESSION: Bilateral small pulmonary nodules do not appear significantly changed and are considered benign given stability. No suspicious new pulmonary nodule. Approved by: Jagdish Lux M.D. on 05/17/2024 at 17:29
== END ==
PROVIDERS: PCP Registered Nurse; Referring Provider Internal Medicine Critical Care Medicine; Visit Provider Internal Medicine Critical Care Medicine
DX: R91.8 Other nonspecific abnormal finding of lung field (principal); N28.1 Cyst of kidney, acquired; K44.9 Diaphragmatic hernia without obstruction or gangrene; Z90.12 Acquired absence of left breast and nipple
CPT/HCPCS: 71250

== ENCOUNTER → 2024-08-12 14:48 | Outpatient (CLI) | payer MEDICARE, SELFPAY ==
--- NOTE | 2024-08-12 14:49 | DI.MG.S_ITS ---
MM screening mammo unilat RT: 08/12/2024. BI-RADS: 1 CLINICAL: 74-year old female for right screening mammogram. No Tyrer-Cuzick risk score calculation due to the patient's personal history of breast cancer. Patient reports a history of left breast carcinoma diagnosed at age 60. Status-post left mastectomy with chemotherapy and hormonal therapy. No first-degree family history of breast cancer. The patient had a prior left breast biopsy. The patient is status-post reduction mammoplasty. PRIOR EXAMS 07/22/2023, 07/16/2022, 10/26/2019. MAMMOGRAPHY TECHNIQUE: 2D and 3D (tomosynthesis) digital mammographic views obtained, with additional images as needed for full coverage. Current study was also evaluated with a Computer Aided Detection (CAD) system. DENSITY Right: B. There are scattered areas of fibroglandular density. MAMMOGRAPHY FINDINGS Right: No suspicious mass, asymmetry, microcalcification, or other abnormality seen. IMPRESSION: Right * No evidence of malignancy. RECOMMENDATIONS Right * Annual screening mammography. OVERALL ASSESSMENT CATEGORY BI-RADS-1: Negative. The [employer] recommends annual screening mammography beginning at age 40 for women with average risk of breast cancer. ELECTRONICALLY SIGNED: Raymond Chapman M.D. on 08/12/2024 at 10:44:06 PM PT Interpreting Station ID: [id number]
== END ==
PROVIDERS: PCP Registered Nurse; Referring Provider Registered Nurse; Visit Provider Registered Nurse
DX: Z12.31 Encounter for screening mammogram for malignant neoplasm of breast (principal); Z85.3 Personal history of malignant neoplasm of breast; R92.321 Mammographic fibroglandular density, right breast
CPT/HCPCS: 77063; 77067